=== PATIENT | male | born 1950 | race Caucasian/White ===

== ENCOUNTER → 2019-02-24 | Outpatient (CLI) | payer BC | LOC: COL.RAD 10:50 | DX: N63.10 Unspecified lump in the right breast, unspecified quadrant (principal) ==

== ENCOUNTER → 2020-09-28 | Outpatient (CLI) | payer BC | LOC: LDR 07:44 → COL.RAD 07:44 | DX: Z82.49 Family history of ischemic heart disease and other diseases of the circulatory system (principal) ==

== ENCOUNTER 2021-08-25 15:47 | Emergency (ER) | payer OTHER, BC ==
[~2021-08-25] VITALS: Ht 185.4 cm; Wt 88.6 kg
[2021-08-25 15:52] VITALS: TEMP 97.6
[2021-08-25 16:40] LABS: COLLECTION METHOD CLEAN CATCH
[2021-08-25 16:49] LABS: MUCOUS Present (NOT PRESENT); PH 6 (5-8); SQUAMOUS EPITHELIAL None Seen /hpf (0-10); URINE APPEARANCE Clear (CLEAR/HAZY); URINE BACTERIA Occasional /hpf (NONE SEEN); URINE BILIRUBIN Negative (NEGATIVE); URINE BLOOD Negative (NEGATIVE); URINE COLOR Yellow (YELLOW); URINE GLUCOSE Negative (NEGATIVE); URINE KETONE Negative (NEGATIVE); URINE LEUKOCYTE ESTERASE Negative (NEGATIVE); URINE NITRATE Negative (NEGATIVE); URINE PROTEIN(semi-quant) Negative (NEGATIVE); URINE RBC 0-2 /hpf (0-2); URINE UROBILINOGEN Negative (NEGATIVE)
[2021-08-25 18:40] VITALS: BP 151/75; PULSE 69
== END 2021-08-25 18:40 | disposition home or self-care (01) ==
LOC: COL.ER 15:47
PROVIDERS: Nurse Practitioner
DX: S63.124A Dislocation of interphalangeal joint of right thumb, initial encounter (principal); S00.83XA Contusion of other part of head, initial encounter; Z88.6 Allergy status to analgesic agent; W01.198A Fall on same level from slipping, tripping and stumbling with subsequent striking against other object, initial encounter

== ENCOUNTER → 2023-06-13 | Outpatient (CLI) | payer MEDICARE, BC | LOC: COL.RAD 06:57 | DX: R20.2 Paresthesia of skin (principal) ==

== ENCOUNTER 2024-02-10 09:57 | Emergency (ER) | payer MEDICARE, BC ==
[~2024-02-10] VITALS: Ht 185.4 cm; Wt 81.8 kg
[2024-02-10 10:03] VITALS: TEMP 98
[2024-02-10] MEDS ORDERED: Meclizine 25 MG TAB PO ONE (10:45)
[2024-02-10 11:05] LABS: PH 7.5 (5.0-8.5); URINE APPEARANCE CLEAR (CLEAR/HAZY); URINE BLOOD NEGATIVE (NEGATIVE); URINE COLOR YELLOW (YELLOW); URINE GLUCOSE NEGATIVE (NEGATIVE); URINE KETONE NEGATIVE (NEGATIVE); URINE NITRATE NEGATIVE (NEGATIVE); URINE PROTEIN(semi-quant) NEGATIVE (NEGATIVE); URINE UROBILINOGEN 0.2 E.U/dL (0.2-1.0)
[2024-02-10 11:12] LABS: COLLECTION METHOD CLEAN CATCH
[2024-02-10 11:15] LABS: BASO % 0.3 % (0.0-2.0); EOS % 0.6 % (0.0-4.0); GRAN # 5.3 K/mm3 (1.4-6.5); GRAN % 79.9 % (42.2-75.2); HEMATOCRIT 40.1 % (42.0-52.0); HEMOGLOBIN 14.1 g/dl (13.5-18.0); LYMPH # 0.7 K/mm3 (1.2-3.4); LYMPH % 11.1 % (20.0-51.0); MEAN CELL VOLUME 88 fl (80.0-100.0); MEAN CORPUSCULAR HEMOGLOBIN 31 pg (27-31); MEAN CORPUSCULAR HGB CONC 35 g/dl (33.0-37.0); MEAN PLATELET VOLUME 9.2 fl (7.4-10.4); MONO # 0.5 K/mm3 (0.1-0.6); MONO % 7.9 % (1.7-9.3); PLATELET COUNT 191 K/mm3 (130-400); RED BLOOD COUNT 4.57 M/mm3 (4.20-5.60); REDCELL DISTRIBUTION WIDTH-CV 13.8 % (11.5-14.5)
[2024-02-10 11:30] LABS: ALANINE AMINOTRANSFERASE 20 U/L (0-55); ALBUMIN 4.3 g/dL (3.4-4.8); ALKALINE PHOSPHATASE 78 U/L (40-150); ANION GAP 10 mmol/L (7-16); AST,SGOT 19 U/L (5-34); BILIRUBIN,TOTAL 1.5 mg/dL (0.2-1.2); BLOOD UREA NITROGEN 19 mg/dL (8-26); CALCIUM 9.7 mg/dL (8.4-10.2); CHLORIDE 107 mEq/L (98-107); GLUCOSE 88 mg/dL (70-99); POTASSIUM 4.3 mEq/L (3.5-4.5); SODIUM 142 mEq/L (136-145); TOTAL PROTEIN 6.9 g/dl (6.2-8.1)
[2024-02-10 11:52] LABS: TROPONIN-I < 0.010 ng/mL (0.00-0.033)
[2024-02-10] MEDS ORDERED: Iohexol 300 - 100 ML VIAL IV ONE (12:28)
[2024-02-10] MEDS ORDERED: NS 100 ML IV SCH (12:29)
[2024-02-10 14:52] VITALS: BP 173/83; PULSE 58
== END 2024-02-10 14:52 | disposition home or self-care (01) ==
LOC: COL.ER 09:57
PROVIDERS: Nurse Practitioner
DX: R42 Dizziness and giddiness (principal)
CPT/HCPCS: Q9967